=== PATIENT | female | born 2000 | race Caucasian/White ===

== ENCOUNTER 2024-05-12 21:16 | Emergency (ER) | payer OTHER, SELFPAY ==
[2024-05-12 21:19] VITALS: PULSE 95; RESP 20; TEMP 37.6; O2SAT 96
[2024-05-12 21:23] VITALS: BP 103/71; PULSE 99; RESP 20; TEMP 37.6; O2SAT 96; BMI 22.3
[2024-05-12 22:08] LABS: PCR FLU A Negative PCR FLU A (Negative); PCR FLU B Negative PCR FLU B (Negative); SARS PCR* Negative SARS-CoV-2 (Negative)
--- NOTE | 2024-05-12 22:11 | ED.GENADULT ---
HPI - General Adult General Date Seen: 05/12/24 Chief complaint: Fever Stated complaint: Fever, chills Time Seen by Provider: 05/12/24 22:11 History of Present Illness HPI narrative: 23 yo F who is generally healthy. She is approximately 4 weeks . She had a normal spontaneous vaginal delivery done at [facility] [place] about 4 weeks ago. It sounds like the delivery was complicated by a vaginal tear which was stitched up. She apparently got an infection from the vaginal tear and required a couple of days of hospitalization for IV antibiotics and then was discharged home on some oral antibiotics. That injury has healed up. She has no ongoing symptoms related to her vaginal tear. She has been doing well. About 3 days ago, on Saturday evening she started developed fever, chills, body aches, headache, and feeling unwell. She notes that she did have some alcohol for the 1st time since her baby was born Saturday night. After drinking alcohol she was breast pumping to keep her milk supply adequate (but was planning to jump out her pumped milk). She inaccurately applied the breast pump to her left breast and actually left a small bruise on the upper inner rim of her areola. Her left breast has been mildly tender since then. She has noticed a few stretch shipman on the breast but no reddened areas. She does not have a cough. No nasal congestion. No sore throat. Urination has been normal. No abdominal pain. No flank pain. No rashes. This evening she had intermittent fevers. Temperature was up to about 105 F at home, per her home thermometer reading. Now that she is here in the ER is come down to 99.7. Related Data Home Medications ?Medication ?Instructions ?Recorded ?Confirmed No Known Home Medications 05/12/24 05/12/24 Allergies Allergy/AdvReac Type Severity Reaction Status Date / Time No Known Drug Allergies Allergy Verified 05/12/24 21:28 PFSH PFS Social History Smoking Status: Never smoker Second hand tobacco smoke exposure: No How often do you have a drink containing alcohol: never AUDIT-C Alcohol total score: 0 Non-prescribed substance use: denies use Exam Narrative: Exam Narrative: Constitutional: Appears well-developed and well-nourished. Alert. Conversant. Non toxic. at her bedside. Their baby is at home. HENT: Head: Atraumatic. No depressed skull fracture, Raccoon Eyes, Mejía's sign, or hemotympanum. Face normal. TMs normal TMs, canals, mastoids, pinnae are normal bilaterally. Nose: Nose normal. Mouth/Throat: Oral mucosa is clear and moist. no trismus. Pharynx normal. Tonsils symmetric. No tonsillar enlargement, erythema, or exudate. Eyes: Conjunctivae normal. EOM normal. Pupils equal, round, and reactive to light. No scleral icterus. Neck: Normal range of motion. Neck supple. No tracheal deviation present. Cardiovascular: Normal rate, regular rhythm. No gallop. No friction rub. No murmur heard. Symmetric radial artery pulses Pulmonary/Chest: Effort normal. No stridor. No respiratory distress. No wheezes. No rales. No rhonchi . No tenderness. Breast exam: Performed with female monkey breeder. Patient's right breast is normal. On the left breast there is a small 1 cm rim of petechiae/ecchymosis affecting the upper inner rim of the areola which is likely the spot where she malpositioned her breast pump on Saturday night. On the left medial breast at roughly 3:00 a.m. on the breast with the breasts o'clock face there is an irregularly shaped 4 x 2 cm area of erythema. Her left medial breast is tender to palpation, more so than the right. There is no palpable fluctuance. Patient is not sure how long the erythema has been there. Her thinks it is probably new in the past couple of days. Abdominal: Soft. Bowel sounds normal. No distension. No mass. No tenderness. No rebound. No guarding. Musculoskeletal: RUE: Normal range of motion. No tenderness. No deformity LUE: Normal range of motion. No tenderness. No deformity RLE: Normal range of motion. No edema. No tenderness. No deformity LLE: Normal range of motion. No edema. No tenderness. No deformity Lymph: No cervical adenopathy. Neurological: Alert and oriented to person, place, and time. Normal strength. CN II-VII intact. No sensory deficit. GCS eye subscore is 4. GCS verbal subscore is 5. GCS motor subscore is 6. Normal coordination Skin: Skin is warm and dry. No rash noted. No pallor. Normal capillary refill. Psychiatric: Normal mood. Normal affect. Const: Vital Signs, click to edit/add: Vital Signs - 24 hr 05/12/24 21:19 05/12/24 21:23 05/12/24 22:43 Temperature 99.7 F H 99.7 F H 99.7 F H Pulse Rate [Right Pulse Oximeter] 95 99 Respiratory Rate 20 20 Blood Pressure [Ri ght Upper Arm] 103/71 Pulse Oximetry 96 96 Oxygen Delivery Me thod Room Air Room Air 05/12/24 23:41 05/12/24 23:47 Temperature 99.0 F 99.0 F Pulse Rate [Right Pulse Oximeter] 85 85 Respiratory Rate 20 20 Blood Pressure [Ri ght Upper Arm] 110/68 110/68 Pulse Oximetry 96 Oxygen Delivery Me thod Room Air Course Vital Signs Vital signs: Initial Vital Signs Temperature 99.7 F H 05/12/24 21:19 Temperature Source Temporal Artery Scan 05/12/24 21:19 Pulse Rate 95 05/12/24 21:19 Respiratory Rate 20 05/12/24 21:19 Respiratory Effort Normal, Spontaneous, Non-Labored 05/12/24 21:19 Respiratory Depth Normal 05/12/24 21:19 Respiratory Pattern Normal 05/12/24 21:19 Pulse Oximetry 96 05/12/24 21:19 Oxygen Delivery Method Room Air 05/12/24 21:19 Sepsis Recent Fever Within 48 Hours Yes 05/12/24 21:19 Sepsis New/Unexplained Change in Mental Status No 05/12/24 21:19 Sepsis Action Taken by Nursing Physician Notified 05/12/24 21:19 Vital Signs Temperature 99.7 F H 05/12/24 21:19 Pulse Rate 95 05/12/24 21:19 Respiratory Rate 20 05/12/24 21:19 Pulse Oximetry 96 05/12/24 21:19 Oxygen Delivery Method Room Air 05/12/24 21:19 Temperature 99.0 F 05/12/24 23:47 Pulse Rate 85 05/12/24 23:47 Respiratory Rate 20 05/12/24 23:47 Blood Pressure 110/68 05/12/24 23:47 Pulse Oximetry 96 05/12/24 23:41 Oxygen Delivery Method Room Air 05/12/24 23:41 Medications Administered Medications: Discontinued Medications Generic Name Dose Route Start Last Admin Trade Name Freq PRN Reason Stop Dose Admin Ibuprofen 600 mg 05/12/24 22:40 05/12/24 22:43 Ibuprofen 600 Mg Tablet PO 05/12/24 22:41 600 mg ONCE ONE Administration Medical Decision Making MDM Narrative Medical decision making narrative: Child presents for evaluation of fever, headache, body aches, chills. Differential is broad. No classic rash to suggest viral syndrome. PCR negative for influenza and coronavirus. No evidence for OM on exam. No evidence for pharyngitis or strep throat. Differential for fever included cellulitis, septic arthritis, osteomyelitis but these are not seen on exam. Lungs are clear and no significant cough, so I doubt pneumonia. Abdominal exam is benign, appendicitis/colitis/ intra-abdominal source for fever is unlikely. The patient is smiling, alert, sitting up, and non-toxic, so I do not think sepsis or meningitis is present. UA is normal. She does have a headache but no neck stiffness or meningismus. Overall she is well-appearing. Discussed possible meningitis with the patient and her . At this point using shared decision-making we all agree that the risk and discomfort a lumbar puncture would outweigh the benefit. Clinically she does does not appear to have bacterial meningitis. On clinical exam she does have an area of erythema on her left medial breast which I think is suspicious for a probable evolving mastitis. No palpable fluctuance to suggest breast abscess. Will start her on cephalexin to treat for possible mastitis. She has an allergy to penicillins. Instymeds prescription provided.. Instructions to return for recheck in 1-2 days if not improved, or immediately if worsening fever, spreading mastitis, dehydration, weakness lethargy, irritability, or any other concerns. Lab Data Labs: Lab Results 05/12/24 05/12/24 Range/Units 21:20 22:39 Urine Color Yellow (Yellow) Urine Appearance Clear (Clear) Urine pH 7.5 (5.0-8.5) Ur Specific [place] 1.015 (1.000-1.030) Urine Protein Negative (Negative) Urine Glucose (UA) Negative (Negative) Urine Ketones Negative (Negative) Urine Blood Trace-intact A (Negative) Urine Nitrite Negative (Negative) Urine Bilirubin Negative (Negative) Urine Urobilinogen 0.2 (0.2-1.0) Ur Leukocyte Esterase Trace A (Negative) Urine RBC 0-2 (0-2) Urine WBC 0-2 (0-5) Ur Squamous Epith Cells Few (None-Few) Urine Bacteria None (None) SARS-CoV-2 (PCR) Negative SARS-CoV-2 (Negative) Influenza Type A (PCR) Negative PCR FLU A (Negative) Influenza Type B (PCR) Negative PCR FLU B (Negative) Discharge Plan Discharge Clinical Impression: Mastitis Patient Disposition: Home, Self-Care Condition: Stable Instructions: Mastitis (ED) Additional Instructions: As we discussed, please come back to the ER right away if you have worsening headache, stiff neck, nausea and vomiting, confusion, or if he develops other symptoms such as coughing or trouble breathing, or if your reddened area on your left breast is getting larger or more painful. Typically takes 24-72 hours for antibiotics to help start help improving infections. Start the antibiotic tonight to help treat mastitis. Monitor the area carefully and if it is getting worse, come back to the ER or see her doctor right away. Keep taking ibuprofen or Tylenol if needed for body aches and fever. Drink plenty of fluids and stay hydrated. It is safe to continue breast feeding. Prescriptions: No Action No Known Home Medications Follow Up/Referrals: Provider,Not a Local [Primary Care Provider] - Stand Alone Forms: Shutl Info Instructions
[2024-05-12 22:43] VITALS: TEMP 37.6
[2024-05-12] MEDS: IBUPROFEN 600 MG TABLET PO (22:43)
[2024-05-12 23:10] LABS: Appearance Urine Clear (Clear); Bilirubin Urine Negative (Negative); Blood Urine Trace-intact (Negative); Color Urine Yellow (Yellow); Glucose Urine Negative (Negative); Ketones Urine Negative (Negative); Leukocyte Esterase Urine Trace (Negative); Nitrite Urine Negative (Negative); Protein Urine Negative (Negative); Specific Gravity Urine 1.015 (1.000-1.030); Urobilinogen Urine 0.2 (0.2-1.0); pH Urine 7.5 (5.0-8.5)
[2024-05-12 23:15] LABS: RBC Urine 0-2 (0-2); Squamous Epithelial Cell Urine Few (None-Few); WBC Urine 0-2 (0-5)
[2024-05-12 23:41] VITALS: BP 110/68; PULSE 85; RESP 20; TEMP 37.2; O2SAT 96
[2024-05-12 23:47] VITALS: BP 110/68; PULSE 85; RESP 20; TEMP 37.2
== END 2024-05-12 23:47 | disposition home or self-care (01) ==
PROVIDERS: Emergency Provider Emergency Medicine
DX: N61.0 Mastitis without abscess (principal)
CPT/HCPCS: 81001; 87086; 87631; 99282; 99283; A9270